=== PATIENT | male | born 1940 | race African-American/Black ===

== ENCOUNTER → 2016-12-20 | Outpatient (CLI) | payer MEDICARE, OTHER ==
[~2016-12-20] VITALS: Ht 182.9 cm; Wt 97.0 kg
[~2016-12-20] MED LIST: ALLO100T PO; ASPI-891 PO; ATEN-188 PO; CHOL400C8 PO; CLON.1 PO; CLOP75 PO; METF500T4 PO; MULT-71 PO; PANT40TA25 PO; SIMV40 PO
[2016-12-20 09:28] VITALS: BP 179/86
[2016-12-20 09:42] LABS: GLUCOSE,POINT OF CARE 123 MG/DL (70-110)
== END | disposition home or self-care (01) ==
LOC: SRCNTR 09:22
PROVIDERS: ATTEND Hospitalist
DX: E11.9 Type 2 diabetes mellitus without complications (principal); I10 Essential (primary) hypertension; E78.5 Hyperlipidemia, unspecified; M10.9 Gout, unspecified; I69.351 Hemiplegia and hemiparesis following cerebral infarction affecting right dominant side; R47.01 Aphasia; H53.47 Heteronymous bilateral field defects; I63.9 Cerebral infarction, unspecified; M25.569 Pain in unspecified knee; Z85.46 Personal history of malignant neoplasm of prostate
CPT/HCPCS: 82962; G0463

== ENCOUNTER → 2016-12-22 | Outpatient (CLI) | payer MEDICARE, OTHER | END | disposition home or self-care (01) | LOC: RADMN 08:27 | PROVIDERS: ATTEND Hospitalist | DX: S83.241A Other tear of medial meniscus, current injury, right knee, initial encounter (principal); M17.11 Unilateral primary osteoarthritis, right knee; M11.261 Other chondrocalcinosis, right knee; R60.0 Localized edema; M22.41 Chondromalacia patellae, right knee; M25.461 Effusion, right knee; M71.21 Synovial cyst of popliteal space [Baker], right knee | CPT/HCPCS: 73721 ==

== ENCOUNTER → 2017-01-31 | Outpatient (CLI) | payer MEDICARE, OTHER ==
[~2017-01-31] VITALS: Ht 182.9 cm; Wt 97.0 kg
[~2017-01-31] MED LIST changes: +SIMV-261 PO; -SIMV40 PO; +TRAM50TA4 PO
[2017-01-31 10:54] VITALS: BP 158/87
[2017-01-31 13:12] LABS: GLUCOSE COMMENT 1 Doctor Notified; GLUCOSE,POINT OF CARE 94 MG/DL (70-110)
== END | disposition home or self-care (01) ==
LOC: SRCNTR 10:49
PROVIDERS: ATTEND Hospitalist
DX: E11.65 Type 2 diabetes mellitus with hyperglycemia (principal); I10 Essential (primary) hypertension; E78.5 Hyperlipidemia, unspecified; R47.01 Aphasia; M10.9 Gout, unspecified; M25.569 Pain in unspecified knee; M17.9 Osteoarthritis of knee, unspecified; R60.0 Localized edema; M22.40 Chondromalacia patellae, unspecified knee; M25.40 Effusion, unspecified joint; M71.20 Synovial cyst of popliteal space [Baker], unspecified knee; H53.461 Homonymous bilateral field defects, right side; E11.8 Type 2 diabetes mellitus with unspecified complications; N28.9 Disorder of kidney and ureter, unspecified; Z86.73 Personal history of transient ischemic attack (TIA), and cerebral infarction without residual deficits; Z85.46 Personal history of malignant neoplasm of prostate
CPT/HCPCS: 82962; G0463